=== PATIENT | male | born 1985 | race Two or more races ===

== ENCOUNTER 2021-04-19 23:52 | Emergency (ER) | payer MEDICAID, SELFPAY ==
[~2021-04-19] VITALS: Ht 185.4 cm; Wt 97.6 kg
[2021-04-20 00:07] VITALS: BP 122/81
--- NOTE | 2021-04-20 00:13 | NUR ---
ASSUMED CARE OF PATIENT. PATIENT [facility]INE [facility]ACOBS [facility]. PT REPORTS HE IS HEARING VOCIES. PT DENIES SI, HI. PT DOES REPORT HE HAS A HISTORY OF SCHIZOPHRENIA AND IS NOT TAKING HIS MEDICATION. PT IS HAS RANDOM THOUGHTS. PT IS COOPERATIVE AT THIS TIME. ONE BAG OF BELONGINGS LOCKED UP. PT IS IN A GOWN. ROOM SECURE. SITTER AT DOOR. PT HAS BEEN SEEN BY DR DELA CRUZ. VS STABLE. WILL CONTINUE TO [facility].
[2021-04-20 00:30] LABS: BASOPHILS % (AUTO) 1 % (0-1); EOSINOPHILS % (AUTO) 0 % (1-7); LYMPHOCYTES % (AUTO) 17 % (22-44); MEAN CORPUSCULAR HEMOGLOBIN 31.3 pg (27.5-34.5); MEAN CORPUSCULAR HGB CONC 34.6 g/dL (33.2-36.2); MEAN PLATELET VOLUME 9.5 fL (7.4-10.4); MONOCYTES % (AUTO) 7 % (2-9); NEUTROPHILS % (AUTO) 75 % (42-75); PLATELET COUNT 353 x10^3/uL (130-400); RED BLOOD COUNT 5.54 x10^6/uL (4.38-5.82); RED CELL DISTRIBUTION WIDTH 13.4 % (9.4-14.8)
[2021-04-20 00:41] LABS: ALBUMIN 4.8 g/dL (3.4-5.0); ANION GAP 7 mmol/L (5-15); CHLORIDE 110 mmol/L (98-107); CREATININE 1.71 mg/dL (0.7-1.3); SALICYLATE LEVEL < 1.7 mg/dL (2.8-20.0)
--- NOTE | 2021-04-20 01:21 | NUR ---
PT RESTING IN ROOM. NO ACUTE DISTRESS NOTED. SITTER AT DOOR. WILL CONTINUE TO MONITOR.
--- NOTE | 2021-04-20 01:33 | NUR ---
REPORT FROM [facility]
--- NOTE | 2021-04-20 01:34 | NUR ---
REPORT GIVEN TO KIRA BRAGG
[2021-04-20 01:57] LABS: AMPHETAMINE SCREEN, URINE Positive (Negative); BARBITURATE SCREEN, URINE Negative (Negative); BENZODIAZEPINE SCREEN, URINE Negative (Negative); CANNABINOID SCREEN, URINE Negative (Negative); COCAINE SCREEN, URINE Negative (Negative); METHADONE SCREEN, URINE Negative (Negative); OPIATE SCREEN, URINE Negative (Negative)
--- NOTE | 2021-04-20 02:00 | NUR ---
PT STANDING BESIDE BED STS STRETCHING HIS LEGS NO NEEDS AT THIS TIME, SITTER IN SIGHT
--- NOTE | 2021-04-20 03:00 | NUR ---
PT RESTING ON GURNEY PROVIDED WITH ICE WATER REQUESTED SITTER IN SIGHT FOR SAFETY
--- NOTE | 2021-04-20 04:15 | NUR ---
PT PACING IN ROOM STS CAN'T SLEEP, EASILY REDIRECTED, SITTER IN SIGHT FOR SAFETY
--- NOTE | 2021-04-20 05:22 | NUR ---
TELEPSYCH UPDATED ON PT AT THIS TIME, WILL CALL BACK AFTER SEEING PT
[2021-04-20] MEDS ORDERED: OLANZAPINE 10 MG TABLET PO ONE (06:00)
--- NOTE | 2021-04-20 06:29 | NUR ---
PT GIVEN DC INSTRUCTIONS, ALL QUESTIONS ADDRESSED. PT OFFERED [facility]/ BUS PASS PT DECLINED STATING WANTS TO WALK TO [facility] TO GET SOME FRESH AIR. PT REPORTS KNOWING THE WAY TO [facility] QUITE WELL.
== END 2021-04-20 06:32 | disposition home or self-care (01) ==
LOC: ED 23:52
DX: F20.9 Schizophrenia, unspecified (principal); G89.29 Other chronic pain; M54.6 Pain in thoracic spine; R45.850 Homicidal ideations; R00.9 Unspecified abnormalities of heart beat; Z72.9 Problem related to lifestyle, unspecified
CPT/HCPCS: 36415; 71045; 80048; 80299; 80307; 80320; 80329; 82040; 85025; 99284; G0480